=== PATIENT | female | born 1970 | race American Indian/Alaskan Native ===

== ENCOUNTER 2017-06-06 06:34 | Day surgery (SDC) | payer MEDICAID ==
[2017-06-06] MEDS ORDERED: WATER FOR IRRIG STERILE IR ONE (07:28)
[2017-06-06] MEDS ORDERED: DIPRIVAN 10 MG/ML IV ONE (07:30)
--- NOTE | 2017-06-06 07:40 | Anesthesia Day of Surgery ---
Anesthesia Day of Surgery - Day of Surgery Patient Examined: Yes Patient H&P Reviewed: Yes Patient is NPO: Yes
--- NOTE | 2017-06-06 07:40 | Anesthesia Consultation ---
Anesthesia Consult and Med Hx Date of service: 06/06/17 - Airway Anesthetic Teeth Evaluation: Good ROM Head & Neck: Adequate Mental/Hyoid Distance: Adequate Mallampati Class: Class II Intubation Access Assessment: Probably Good - Pulmonary Exam CTA: Yes - Cardiac Exam Cardiac Exam: RRR - Pre-Operative Health Status ASA Pre-Surgery Classification: ASA3 Proposed Anesthetic Plan: MAC - Pulmonary Hx Smoking: No - Cardiovascular System Hx Hypertension: Yes - Other Systems Hx Obesity: Yes (gastric bypass in 2003) - Additional Comments Anesthesia Medical History Comments: NAC
--- NOTE | 2017-06-06 08:12 | Discharge Summary ---
Providers - Providers Date of discharge: 06/06/17 Attending physician: LAMINE OJEDA Hospitalization Condition: Good Procedures: egd Disposition: - TO HOME OR SELFCARE Core Measure Documentation - Palliative Care Palliative Care/ Comfort Measures: Not Applicable - Core Measures Any of the following diagnoses?: none Exam - Physical Exam Narrative exam: unchanged from pre-op Plan Activity: no restrictions Weight Bearing Status: Full Weight Bearing Diet: regular
[2017-06-06] MEDS ORDERED: NACL 0.9% 1000 ML 1,000 ML IV SCH (09:00)
--- NOTE | 2017-06-06 09:04 | Operative Report ---
Operative Report Operative Report: EGD Post bypass DATE: 06/06/17 OPERATIVE REPORT - EGD PREOP DIAGNOSIS: gastric dyspepsia POSTOP DIAGNOSIS: failure of GJ anastamosis SURGERY: Upper endoscopy. SURGEON: Charles Wright M.D. TYPE OF ANESTHESIA: MAC. ESTIMATED BLOOD LOSS: None. COMPLICATIONS: None. SPECIMENS REMOVED: None. FINDINGS: 1. normal esophagus 2. gastric pouch - 40ml 3. gastrojejunal anastomosis is 20mm INDICATIONS:INDICATION FOR PROCEDURE: Patient is a 46-year-old female s/p gastric bypass in. The patient is here today for evaluation for revisional surgery. The patient is here for a planned EGD for gastric dyspepsia. PROCEDURE DETAILS: After consent was reviewed, patient was taken back to the operating room where patient was placed in the left lateral decubitus position and a bite block was placed in the mouth. After a time-out was called, MAC anesthesia was initiated. I then passed the endoscope into the patients oropharynx, into the esophagus, visualized the entire esophagus, which was all within normal limits. I then visualized the gastric pouch which was normal and about 40ml in size. The gastrojejunal anastomosis was enlarged at about 20mm. There were no signs of ulcer, suture granuloma, or masses. The proximal portion of the heather limb was normal. I then desufflated the gastric pouch and removed the endoscope. Patient tolerated procedure well and was transferred to recovery room in good and stable condition.
--- NOTE | 2017-06-06 09:24 | Post Anesthesia Evaluation ---
- Post Anesthesia Evaluation Patient Participated: Yes Airway Patent: Yes Stable Respiratory Function: Yes Nausea/Vomiting: No Temp > 96.8F: Yes Pain Manageable: Yes Adequeate Hydration: Yes Anesthesia Complications: No Block Receding Appropriately: Not Applicable Patient on Ventilator: No
[2017-06-06 11:20] VITALS: BP 121/68
== END 2017-06-06 06:35 | disposition home or self-care (01) ==
LOC: GIO 06:34
PROVIDERS: ATTEND Surgery
DX: K91.89 Other postprocedural complications and disorders of digestive system (principal); Y83.8 Other surgical procedures as the cause of abnormal reaction of the patient, or of later complication, without mention of misadventure at the time of the procedure; I10 Essential (primary) hypertension; E66.9 Obesity, unspecified; Z90.49 Acquired absence of other specified parts of digestive tract; Z90.710 Acquired absence of both cervix and uterus
CPT/HCPCS: 43235; J2704; J7030

== ENCOUNTER 2017-10-22 11:00 | Outpatient (CLI) | payer MEDICAID | END 2017-10-22 11:01 | disposition home or self-care (01) | LOC: SLR 11:00 | PROVIDERS: ATTEND Otolaryngology | DX: G47.30 Sleep apnea, unspecified (principal); R40.0 Somnolence | CPT/HCPCS: G0399 ==

== ENCOUNTER 2017-11-26 09:40 | Outpatient (CLI) | payer MEDICAID ==
--- NOTE | 2017-11-26 14:04 | Fluoroscopy Report ---
Modified barium swallowing with video fluoroscopy: History: Dysphagia. Findings: There is no anatomic obstruction noted to the flow of liquid and semisolid through the cervical esophagus. No aspiration was noted during swallowing. Compared to portable be provided by speech therapist. Impression: Findings as detailed above. Fluoroscopic time was 2 minutes and 50 seconds
== END 2017-11-26 09:41 | disposition home or self-care (01) ==
LOC: PT 09:40
PROVIDERS: ATTEND Otolaryngology
DX: K21.9 Gastro-esophageal reflux disease without esophagitis (principal)
CPT/HCPCS: 74230

== ENCOUNTER 2017-12-23 11:00 | Outpatient (CLI) | payer MEDICAID | END 2017-12-23 11:01 | disposition home or self-care (01) | LOC: SLR 11:00 | PROVIDERS: ATTEND Otolaryngology | DX: G47.33 Obstructive sleep apnea (adult) (pediatric) (principal); R40.0 Somnolence | CPT/HCPCS: 95811 ==